=== PATIENT | male | born 1960 | race Caucasian/White ===

== ENCOUNTER → 2020-03-11 12:43 | Outpatient (CLI) | payer BC, SELFPAY ==
--- NOTE | ~2020-03-11 | CT_ITS ---
EXAMINATION: CT abdomen pelvis w con DATE: 03/11/2020 13:21 INDICATION: Abdominal pain. Hernia. TECHNIQUE: Computed tomography (CT) of the abdomen and pelvis was performed with 100 mL Omnipaque-350 intravenous contrast. Automated exposure control and iterative reconstruction technique were employe d. The dose-length product was 1046.24 mGy-cm. COMPARISON: None FINDINGS: Eventration along the left hemidiaphragm. Postoperative change of prior left thoracotomy with resecti on of portions of the left seventh and eighth ribs and multiple surgical clips at the periphery of th e lower left lung. There are multiple surgical clips at the margin of a [place] saccular aneurysm a rising from the left side of the distal descending thoracic aorta. The aorta which measures approxima tely 2.6 similar in diameter on either side of the aneurysm increases to 4.2 cm medial collateral and 3.3 cm anteroposteriorly at the level of the aneurysm increased attenuation at the margin of the sac cular aneurysm could represent either mural calcification or surgical clips and material for prior re pair. Correlate with surgical history. Mild scarring at the left lung base. Heart size is normal. No pericardial or pleural effusion. Several small calcifications in the liver and spleen consistent with old granulomatous disease. Diffu se hepatic steatosis. Gallbladder is not visualized and is likely surgically absent. Pancreas, bilate ral adrenal glands and kidneys are normal. 2.7 x 2.3 cm fluid-filled duodenal diverticulum posterior to the second portion of the duodenum. To more distal small bowel and the appendix are normal. There is moderate colonic diverticulosis with a sigmoid predominance. There is no adjacent inflammatory ch liv to suggest diverticulitis. Bladder is normal. No free intraperitoneal gas or fluid. No pathologi juan miguel enlarged abdominal or pelvic lymphadenopathy. Suggestion of prior umbilical hernia mesh repair. There is a tiny fat-containing supraumbilical ventral hernia. L5 spondylolysis with bilateral pars i ntra-articular is defects and 7 mm anterolisthesis L5 on S1 with severe disc height loss. Moderate lo wer thoracic spondylosis. IMPRESSION: 1. Tiny fat-containing supraumbilical ventral hernia. 2. 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 Correlate with surgical history. 3. Diffuse hepatic steatosis. 4. L5 spondylolysis with bilateral pars defects and 7 mm anterolisthesis on S1. Reviewed, dictated and finalized at location B. IMPRESSION: 1. Tiny fat-containing supraumbilical ventral hernia. 2. Small saccular aneurysm along the left side of the distal descending thoraci c aorta with change of prior inferior left thoracotomy and surrounding postoper ative changes suggesting possible prior aneurysm repair. Correlate with surgica l history. 3. Diffuse hepatic steatosis. 4. L5 spondylolysis with bilateral pars defects and 7 mm anterolisthesis on S1.
[2020-03-11 13:11] LABS: Estimated Glomerular Filt Rate > 60
== END ==
PROVIDERS: PCP Internal Medicine; Visit Provider Internal Medicine
DX: K43.9 Ventral hernia without obstruction or gangrene (principal); K76.0 Fatty (change of) liver, not elsewhere classified; M47.896 Other spondylosis, lumbar region
CPT/HCPCS: 74177; Q9967

== ENCOUNTER → 2021-09-11 11:58 | Outpatient (CLI) | payer BC, SELFPAY ==
--- NOTE | ~2021-09-11 | XR_ITS ---
EXAMINATION: XR chest 2V EXAM DATE: 09/11/2021 12:16 INDICATION: Dyspnea. TECHNIQUE: Frontal and lateral projections of the chest obtained and reviewed. There is no prior harinder dy for comparison. FINDINGS: There is left pleural blunting, patient may have had partial left pneumonectomy, correlate with surgical history. Mild cardiomegaly. No confluent consolidation or pneumothorax. There are mild bony degenerative changes. IMPRESSION: 1. Cardiomegaly. 2. Left lung volume loss and blunted costophrenic recess probably partial pneumonectomy. Reviewed, dictated and finalized at location B. TICE REPRESENTATIVE IMPRESSION: 1. Cardiomegaly. 2. Left lung volume loss and blunted costophrenic recess probably partial pneu monectomy.
== END ==
PROVIDERS: PCP Internal Medicine; Visit Provider Internal Medicine
DX: R06.00 Dyspnea, unspecified (principal); I51.7 Cardiomegaly
CPT/HCPCS: 71046

== ENCOUNTER 2021-10-02 11:10 | Outpatient (CLI) | payer BC, SELFPAY ==
--- NOTE | 2021-10-02 13:49 | WPDPFTINT ---
PFT Procedure Performed PFT Procedure Performed Plethysmography (Lung Vol) Diffusing Cap (DLCO) Flow Vol Loop Spirometry w/o Bronchodil PFT Interpretation This is a pulmonary function test with spirometry, plethysmography and diffusing capacity. The test was performed and results interpreted in accordance with the 2019 and 2005 ATS/ERS Task Force guidelines respectively using the Global Lung Function Initiative-2012 reference equations. Patient demonstrated good effort and cooperation. Reproducibility criteria were met. The quality of the spirometry maneuver was Grade A. Findings: Spirometry: There is decreased maximal expiratory airflow at low lung volumes with concave expiratory flow tracing. The contour the inspiratory flow tracing is normal. The FVC is 2.08 L, 51% predicted. The FEV1 is 1.27 L, 40% predicted. The FEV1: FVC ratio 61%. Plethysmography: The total lung capacity is 4.42 L, 71% predicted. The functional residual capacity is 2.18 L, 69% predicted. The residual volume is 2.15 L, 106% predicted. Diffusing capacity: The diffusing capacity unadjusted for hemoglobin and carboxyhemoglobin is 24.4, 91% predicted. The diffusing capacity adjusted for alveolar volume is 6.20, 139% predicted. Impression: There is a combined obstructive and restrictive ventilatory abnormality. There are no guidelines to assign the severity of obstruction and restriction with a combined abnormality. In my opinion, given the moderately concave expiratory flow tracing and moderately decreased FEV1:FVC ratio and mild restrictive abnormality I would state there is a moderate obstructive abnormality and a mild restrictive abnormality resulting in a severely decreased FEV1. The diffusing capacity unadjusted for hemoglobin and carboxyhemoglobin is normal and is increased when adjusted for alveolar volume. There are no prior studies for comparison
== END 2021-10-02 11:11 | disposition home or self-care (01) ==
LOC: ANHPFT 11:13
PROVIDERS: PCP Internal Medicine; Visit Provider Internal Medicine
DX: R06.00 Dyspnea, unspecified (principal); R94.2 Abnormal results of pulmonary function studies
CPT/HCPCS: 94375; 94726; 94729

== ENCOUNTER 2022-08-19 09:49 | Outpatient (CLI) | payer BC, SELFPAY ==
--- NOTE | ~2022-08-19 | NM_ITS ---
EXAMINATION: NM jose stress w perfusion DATE: 08/19/2022 11:51 INDICATION: Shortness of breath. TECHNIQUE: Rest images were obtained following intravenous administration of 11 mCi Tc99m tetrofosmin (Myoview). The patient was infused intravenously with Lexiscan (regadenoson). Then, 33 mCi Tc99m tet rofosmin (Myoview) was administered intravenously, and stress images were obtained. Data was reconstr ucted into short axis and horizontal and vertical long axis SPECT images. Gated SPECT images were als o obtained. COMPARISON: CT abdomen and pelvis 03/11/2020 FINDINGS: There is a small, mild, fixed perfusion defect involving apical lateral segment of left nito tricle correlating with subendocardial fat on the prior CT, consistent with old infarct. There is no segmental wall motion abnormality. Left ventricular ejection fraction measures 61%. IMPRESSION: 1. 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 2. Normal left ventricular ejection fraction measuring 61%. Reviewed, dictated and finalized at location A. CARRIER
--- NOTE | 2022-08-19 10:27 | EST_ITS ---
Patient Info Name: Natan Hernandes Age: 62 years : 1960 Gender: Male Ht: 67 in Wt: 260 lbs BSA: 2.42 m2 HR: 83 bpm BP: 138 / 77 mmHg Heart Rhythm: Sinus Rhythm Exam Date: 08/19/2022 10:52 AM Exam Location: [facility] Stress Patient Status: Outpatient Admit Date: 08/19/2022 Staff Ordering Physician: Justo Acosta PA-C Attending Provider: Justo Acosta PA-C Exercise Physician: Ashok French DO Exam Type: CA stress jose w NM Study Info Indications R06.02 - Shortness of breath A regadenoson stress test was performed. Summary 1. 1. Negative lexiscan stress test for ischemic ST changes by ECG criteria. 2. 2. Stable hemodynamics throughout the test. 3. 3. Nuclear scan to follow and will be reported separately. Please correlate with it. 4. 4. Patient informed of the above results. Protocol: Lexiscan Stress ECG Details Stage: REST Duration (min): 0 min : 58 sec HR (bpm): 77 SBP (mmHg): 138 DBP (mmHg): 77 Stage: REST Duration (min): 12 min : 30 sec HR (bpm): 83 SBP (mmHg): 138 DBP (mmHg): 77 Stage: STAGE 1 Duration (min): 0 min : 59 sec HR (bpm): 109 SBP (mmHg): 154 DBP (mmHg): 70 Stage: RECOVERY Duration (min): 1 min : 0 sec HR (bpm): 94 SBP (mmHg): 154 DBP (mmHg): 70 Stage: RECOVERY Duration (min): 2 min : 0 sec HR (bpm): 89 SBP (mmHg): 154 DBP (mmHg): 70 Stage: RECOVERY Duration (min): 3 min : 0 sec HR (bpm): 90 SBP (mmHg): 160 DBP (mmHg): 80 Stage: RECOVERY Duration (min): 3 min : 1 sec HR (bpm): 92 SBP (mmHg): 160 DBP (mmHg): 80 Rest HR: 83 bpm Peak HR: 111 bpm Rest Sys BP: 138 mmHg Peak Sys BP: 160 mmHg Max Pred HR: 159 bpm % Max Pred HR: 70 % Target HR: 135 bpm Max RPP: 17,760 bpm*mmHg Termination Reason: Completed protocol Cardiac Symptoms: Shortness of breath Total Time: 1 min : 0 sec Rest Schilling BP: 77 mmHg Peak Schilling BP: 80 mmHg Total Dose: 0.4 mg Resting ECG Sinus rhythm, IRBBB. Stress ECG No ST changes. Arrhythmias None. Report Signatures
== END 2022-08-19 09:50 | disposition home or self-care (01) ==
PROVIDERS: PCP Physician Assistant; Visit Provider Physician Assistant
DX: R06.02 Shortness of breath (principal); I25.2 Old myocardial infarction
CPT/HCPCS: 78452; 93017; A9502; J2785

== ENCOUNTER 2022-11-25 10:33 | Outpatient (CLI) | payer BC, SELFPAY ==
--- NOTE | 2022-12-01 07:31 | WPDHOLTEREM ---
Holter/Event Monitor Holter/Event Monitor Date of procedure: 11/25/22 Holter/Event Procedure: 48 Hr Holter Monitor Indications: Palpitations Conclusion: 1. 48 hour holter monitor on 11/25/22. 2. Predominant rhythm is sinus rhythm. HR range 54-138 bpm; average HR 85 bpm. 3. There are 6,906 premature supraventricular complexes, 99 supraventricular couplets, 11,390 supraventricular bigeminy and 560 supraventricular trigeminy. There are 12 episodes of atrial tachycardia, fastest at 190 bpm and longest lasting 7 beats. 4. There are 434 premature ventricular complexes and 24 ventricular bigeminy. No ventricular tachycardia. 5. No sinoatrial or atrioventricular blocks. No significant pauses greater than 2 seconds. 6. No symptoms available for correlation.
== END 2022-11-25 10:34 | disposition home or self-care (01) ==
PROVIDERS: PCP Physician Assistant; Visit Provider Physician Assistant
DX: R00.2 Palpitations (principal)
CPT/HCPCS: 93225; 93226

== ENCOUNTER 2023-07-07 09:35 | Outpatient (CLI) | payer BC, SELFPAY ==
--- NOTE | ~2023-07-07 | XR_ITS ---
XR chest 2V 07/07/2023 09:48 Indication: Cough for 4 weeks Procedure: 2 view chest Comparison: 09/11/2021 Findings: Multiple healed left rib fractures with adjacent pleural thickening. There is blunting of t he left lateral costophrenic recess. Cardiomegaly. No acute focal pneumonia, edema or pneumothorax. Impression: 1: No acute cardiopulmonary disease. Reviewed, dictated and finalized at location B. ISH FACULTY MEMBER Impression: 1: No acute cardiopulmonary disease.
== END 2023-07-07 09:36 | disposition home or self-care (01) ==
PROVIDERS: PCP Physician Assistant; Visit Provider Physician Assistant
DX: R05.9 Cough, unspecified (principal)
CPT/HCPCS: 71046

== ENCOUNTER 2024-07-21 00:28 | Day surgery (SDC) | payer BC, SELFPAY ==
[2024-06-29 13:41] VITALS: BMI 41.4
[2024-07-21 07:48] VITALS: BP 156/87; PULSE 102; RESP 24; TEMP 36.2; O2SAT 95
[2024-07-21] MEDS: LACTATED RINGERS 1,000 ML 150 ML IV CONT (08:03)
--- NOTE | 2024-07-21 08:15 | WPDANESEPPF ---
Anes - Initial Pre Proc Eval Procedure: Operation Date: 07/21/24 09:00 Proposed Procedures p Screening Colonoscopy - Joni Lemon MD Date/Time: 07/21/24 08:15 Surgeon: Joni Lemon MD Pre Op Diagnosis: screening colon Patient Data Age: 64 Gender: M Height: 1.7 m Weight: 119.1 kg Last Vital Signs Temp 97.2 F L 07/21/24 07:48 Pulse 102 H 07/21/24 07:48 Resp 24 H 07/21/24 07:48 BP 156/87 H 07/21/24 07:48 Pulse Ox 95 07/21/24 07:48 O2 Del Method Room Air 07/21/24 07:48 Allergies Allergy/AdvReac Type Severity Reaction Status Date / Time No Known Allergies Allergy Verified 07/21/24 07:44 Home Medications ?Medication ?Instructions ?Recorded ?Confirmed ?Type aspirin 81 mg tablet,delayed 81 mg PO DAILY 07/31/22 07/21/24 History release (Adult Low Dose Aspirin) multivitamin (Daily Multi-Vitamin 1 tablet PO DAILY 07/31/22 07/21/24 History tablet) fluticasone 100 mcg-salmeterol 50 1 inh inhalation Q12H #60 ea 07/13/23 06/29/24 Rx mcg/dose blistr powdr for inhalation (Advair Diskus) rosuvastatin 5 mg tablet 5 mg PO DAILY #90 tabs 10/04/23 07/21/24 Rx lisinopril 20 2 tablet PO DAILY #180 tabs 01/28/24 07/21/24 Rx mg-hydrochlorothiazide 12.5 mg tablet omeprazole 20 mg capsule,delayed See Rx Instructions .Route 03/22/24 07/21/24 Rx release .COMPLEX #90 caps diltiazem HCl 120 mg 120 mg PO DAILY #90 caps 04/11/24 07/21/24 Rx capsule,extended release 24 hr Patient hx anesthesia problems: none Family hx anesthesia problems: none Results Review: All pre-operative results and documents have been reviewed as part of the pre-operative evaluation. [facility] Social History Social History Years smoked: 20 Smoking status: Former smoker Tobacco type: cigars Second hand tobacco smoke exposure: No Alcohol intake: current Drinks per week: 7 Substance use: unknown Substance use type: does not use Last use: 2019 Lack of Transportation: YES Lack of Food: Never True Current Housing: I Have Housing Concerned About Future Housing: No Difficulty Paying Gas/Electric Bills: No Difficulty Paying for Meds: No Currently Unemployed: No Education: High School Diploma/GED Difficulty w/ Childcare or Family Care: No Living arrangements: with family Spiritual care concerns: No Anes - Eval Final PreProcedure Day of Procedure 07/21/24 08:15 Patient weight: morbidly obese Heart: regular rate and rhythm Lungs: clear to auscultation Airway: Mallampati scale class III Neurological: alert and oriented Last oral intake: >/= 8 hours ASA classification: III Emergent: no Anesthetic plan: proceed Anesthesia type and monitoring: general GIVS and standard monitoring Results Review: All pre-operative results and documents have been reviewed as part of the pre-operative evaluation. Informed Consent: The patient's anesthetic plan and its attendant risks and benefits were discussed with the patient/family/POA. Questions were solicited and answers provided to the satisfaction of the patient/family/POA.
--- NOTE | 2024-07-21 09:00 | PM.IMHP ---
H&P: HPI History of Present Illness Date/Time: 07/21/24 09:00 Chief Complaint: Screening colonoscopy Narrative: This is the patient's 2nd colonoscopy after 10 years.. There are no GI symptoms and there is no family history of colorectal cancer. Review of Systems Review of Systems: All systems reviewed & are unremarkable except as noted in HPI and below PMFSH Social History Social History Years smoked: 20 Smoking status: Former smoker Tobacco type: cigars Second hand tobacco smoke exposure: No Alcohol intake: current Drinks per week: 7 Substance use: unknown Substance use type: does not use Last use: 2019 Lack of Transportation: YES Lack of Food: Never True Current Housing: I Have Housing Concerned About Future Housing: No Difficulty Paying Gas/Electric Bills: No Difficulty Paying for Meds: No Currently Unemployed: No Education: High School Diploma/GED Difficulty w/ Childcare or Family Care: No Living arrangements: with family Spiritual care concerns: No Meds Home Medications and Allergies Home Medications ?Medication ?Instructions ?Recorded ?Confirmed ?Type aspirin 81 mg tablet,delayed 81 mg PO DAILY 07/31/22 07/21/24 History release (Adult Low Dose Aspirin) multivitamin (Daily Multi-Vitamin 1 tablet PO DAILY 07/31/22 07/21/24 History tablet) fluticasone 100 mcg-salmeterol 50 1 inh inhalation Q12H #60 ea 07/13/23 06/29/24 Rx mcg/dose blistr powdr for inhalation (Advair Diskus) rosuvastatin 5 mg tablet 5 mg PO DAILY #90 tabs 10/04/23 07/21/24 Rx lisinopril 20 2 tablet PO DAILY #180 tabs 01/28/24 07/21/24 Rx mg-hydrochlorothiazide 12.5 mg tablet omeprazole 20 mg capsule,delayed See Rx Instructions .Route 03/22/24 07/21/24 Rx release .COMPLEX #90 caps diltiazem HCl 120 mg 120 mg PO DAILY #90 caps 04/11/24 07/21/24 Rx capsule,extended release 24 hr Allergies Allergy/AdvReac Type Severity Reaction Status Date / Time No Known Allergies Allergy Verified 07/21/24 07:44 Vital Signs Vital Signs - 24 hr 07/21/24 07:48 Temperature 97.2 F L Pulse Rate 102 H Respiratory Rate 24 H Blood Pressure 156/87 H Pulse Oximetry 95 Oxygen Delivery Room Air Exam Const: General: cooperative and healthy appearing Resp: Effort & Inspection: normal respiratory effort and able to speak in complete sentences Auscultation: clear to auscultation bilaterally Cardio: Rate: regular rate Rhythm: regular rhythm GI: Inspection: normal to inspection GI Palp: No No hepatosplenomegaly present Auscultation: normal bowel sounds Rectal Exam: deferred Skin: General skin exam: normal color Psych: Appearance: grossly normal Mental Status: mental status grossly normal Assessment and Plan Assessment and plan (1) Encounter for screening colonoscopy: Code(s): Z12.11 - Encounter for screening for malignant neoplasm of colon Status: Acute Assessment and Plan: The patient is deemed a good candidate for the procedure. Consent signed. Will proceed.
[2024-07-21] MEDS: SIMETHICONE ORAL SUSPENSION 20 MG/0.3 ML 30 ML BOTTLE 0.6 ML IRRIGATION (09:11)
[2024-07-21 09:26] VITALS: BP 128/80; PULSE 97; RESP 19; O2SAT 97
[2024-07-21 09:36] VITALS: BP 126/79; PULSE 96; RESP 19; O2SAT 95
[2024-07-21 09:46] VITALS: BP 133/85; PULSE 96; RESP 18; O2SAT 96
== END 2024-07-21 09:57 | disposition home or self-care (01) ==
PROVIDERS: PCP Internal Medicine; Visit Provider Internal Medicine Gastroenterology
PROC: 0DJD8ZZ Inspection of Lower Intestinal Tract, Via Natural or Artificial Opening Endoscopic (ICD-10-PCS; CPT 45378; principal; 2024-07-21 09:00)
DX: Z12.11 Encounter for screening for malignant neoplasm of colon (principal); K64.8 Other hemorrhoids; K57.30 Diverticulosis of large intestine without perforation or abscess without bleeding; E66.01 Morbid (severe) obesity due to excess calories; Z68.41 Body mass index [BMI] 40.0-44.9, adult; Z79.82 Long term (current) use of aspirin; Z79.51 Long term (current) use of inhaled steroids; Z87.891 Personal history of nicotine dependence
CPT/HCPCS: 45378; J2003; J2704; J7120

== ENCOUNTER 2024-09-26 09:57 | Outpatient (CLI) | payer BC, SELFPAY ==
--- NOTE | ~2024-09-26 | XR_ITS ---
Clinical Indication: Cough PA and lateral views of the chest: Comparison: 07/07/2023 Findings: Stable chronic blunting of left costophrenic angle. Lungs are otherwise clear. [employer]omedia stinal silhouette is within normal limits. Bones and soft tissues are unremarkable. Impression: No acute abnormality. Stable chronic blunting of the left costophrenic angle. Reviewed, dictated and finalized at location . Impression: No acute abnormality. Stable chronic blunting of the left costophrenic angle.
--- OUTSIDE RECORDS SUMMARY | 2024-09-26 11:05 | XMS_ITS | Referral Summary ---
Author Organization [facility] Address [address] [place] [address] Care Team Providers Care Industrial Rehabilitation Consultant Name Role Phone Natan Martel MD Primary Care Provider [phone] Natan Cain MD Unavailable [phone] Jj Palma MD Unavailable Encounters Date Type Department Care Team Description 09/23/2024 9:15 AM CDT Office Visit [facility] [address] [phone] Piper Lawrence NP Lower respiratory infection (e.g., bronchitis, pneumonia, pneumonitis, pulmonitis) (Primary Dx) from Last 3 Months Allergies No known active allergies Medications cloNIDine (CATAPRES) 0.2 mg tablet Take 0.2 mg by mouth 2 (two) times a day Active omeprazole (PriLOSEC) 10 mg capsuleIndications: Symptomatic Gastroesophageal Reflux Disease Take 1 capsule (10 mg total) by mouth daily Active mvi, adult no.2 without vit K 3,300 unit-200 unit/10 mL solutionIndications :Pre-Surgery or Post-Surgery Health Examination Infuse into a venous catheter Active lisinopril-hydroCHL OROthiazide (ZESTORETIC) 20-12.5 mg per tablet Take 2 tablets by mouth daily Active dilTIAZem CD 120 mg 24 hr capsule 024 Active rosuvastatin (CRESTOR) 10 mg tablet Take 1 tablet (10 mg total) by mouth Active benzonatate (TESSALON) 200 mg capsuleIndications: Lower respiratory infection (e.g., bronchitis, pneumonia, pneumonitis, pulmonitis) Take 1 capsule (200 mg total) by mouth 3 (three) times a day as needed for cough 30 capsule Active azithromycin (ZITHROMAX) 250 mg tabletIndications:L ower respiratory infection (e.g., bronchitis, pneumonia, pneumonitis, pulmonitis) Take 2 tablets the first day, then 1 tablet daily for 4 days. 6 tablet Active amoxicillin-clavula poppy (AUGMENTIN) 875-125 mg per tabletIndications:L ower respiratory infection (e.g., bronchitis, pneumonia, pneumonitis, pulmonitis) Take 1 tablet by mouth 2 (two) times a day for 5 days 10 tablet 025 2024 Active albuterol HFA (PROVENTIL HFA,VENTOLIN HFA,PROAIR HFA) 90 mcg/actuation inhalerIndications: Lower respiratory infection (e.g., bronchitis, pneumonia, pneumonitis, pulmonitis) Inhale 2 puffs every 6 (six) hours as needed for wheezing or shortness of breath 1 each 025 Active methylPREDNISolone (Medrol, Savage,) 4 mg DosepackIndications :Lower respiratory infection (e.g., bronchitis, pneumonia, pneumonitis, pulmonitis) follow package directions 1 packet Active benzonatate (TESSALON) 200 mg capsuleIndications: COVID Take 1 capsule (200 mg total) by mouth 3 (three) times a day as needed for cough keep tessalon out of reach of children, especially children under the age of 10, due to possible serious risk such as if ingested by children under the age of 10. 30 capsule 024 2024 Discontinued albuterol HFA (PROVENTIL HFA,VENTOLIN HFA,PROAIR HFA) 90 mcg/actuation inhalerIndications: Wheezing Inhale 2 puffs every 6 (six) hours as needed for wheezing or shortness of breath 1 each 024 2024 Discontinued Active Problems Problem Noted Date Diagnosed Date Left fingertip tingling 11/12/2021 Apraxia 11/12/2021 Non-traumatic rhabdomyolysis 11/12/2021 Hepatitis 11/12/2021 Primary hypertension 11/12/2021 GEORGE (obstructive sleep apnea) 11/12/2021 Social History Tobacco Use Types Packs/Day Years Used Date Smoking Tobacco: Former Cigarettes 2 - 2015 Smokeless Tobacco: Former Comments:1 cigar a day but d idn't inhale Alcohol Use Standard Drinks/Week Comments Yes 0 (1 standard drink = 0.6 oz pur e alcohol) Social Connection and Isolation Panel [NHANES] A nswer Date Recorded In a typical week, how many times do you talk on the phone with family, friends, or neighbors? Three times a week 11/14/19 How often do you get togethe r with friends or relatives? Once a week 11/13/2021 How often do you attend chur ch or mu-ism services? 1 to 4 times per year 11/13/2021 Active Member of Clubs or Organizations Not on f ile 11/13/2021 Attends Club or Organization Meetings Not on jorge e 11/13/2021 Are you , , di vorced, , never , or living with a partner? 11/13/2021 Overall Financial Resource Strain (CARDIA) Answe r Date Recorded How hard is it for you to pa y for the very basics like food, housing, medical care, and heating? Not very hard 11/13/2021 PHQ-2 Answer Date Recorded PHQ-2 Total Score (If total score is 3 or more points, staff should administer the PHQ-9) 0 11/13/2021 Hunger Vital Sign Answer Date Recorded Within the past 12 months, y ou worried that your food would run out before you got the money to buy more. Never true 11/14/19 Within the past 12 months, t he food you bought just didn't last and you didn't have money to get more. Never true 11/13/2021 PRAPARE - Transportation Answer Date Re corded In the past 12 months, has l ack of transportation kept you from medical appointments or from getting medications? No 11/2021 In the past 12 months, has l ack of transportation kept you from meetings, work, or from getting things needed for daily living? No 11/13/2021 Housing Stability Vital Sign Answer Jerman e Recorded In the last 12 months, was t here a time when you were not able to pay the mortgage or rent on time? No 11/13/2021 Number of Places Lived in the Last Year Not on f ile 11/13/2021 In the last 12 months, was t here a time when you did not have a steady place to sleep or slept in a intermediate (including now)? 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 Gender Identity Not on file Sexual Orientation Not on file Last Filed Vital Signs Vital Sign Reading Time Taken Comments Blood Pressure 149/86 09/23/2024 8:28 AM CDT Pulse 105 09/23/2024 8:28 AM CDT Temperature 37.2 C (98.9 F) 09/23/2024 8:28 AM CDT Respiratory Rate 22 09/23/2024 8:28 AM CDT Oxygen Saturation 93% 09/23/2024 8:28 AM CDT Inhaled Oxygen Concentration - - Weight 118.8 kg (262 lb) 09/23/2024 8:28 AM CDT Height 170.2 cm (5' 7 ) 03/13/2024 8:20 AM CDT Body Mass Index 41.04 03/13/2024 8:20 AM CDT Plan of Treatment Not on file Procedures Procedure Name Priority Date/Time Associated Diagnosis Comments POC INFLUENZA A/B, COVID-19 ANTIGEN Routine 09/23/2024 8:34 AM CDT Lower respiratory infection (e.g., bronchitis, pneumonia, pneumonitis, pulmonitis) HEPATITIS C ANTIBODY Routine 11/13/2021 4:55 AM CDT from Last 3 Months or Most Recently Relevant to Health Maintenance Results * POC Influenza A/B, COVID-19 antigen (09/23/2024 8:34 AM CDT) Influenza A Ag, POC Negative Negative [facility] Influenza B Ag, POC Negative Negative [facility] COVID-19 Ag POC Presumptive Negative Presumptive Negative, Invalid [facility] Nasal 09/23/2024 8:34 AM CDT Piper Lawrence NP POINT OF CARE TEST ORDERABLES Final Result Performing Organization Address [facility] Co de Phone Number [facility] [address] * Hepatitis C antibody (11/13/2021 4:55 AM CDT) Hep C Ab Nonreactive Nonreactive [facility] CHRISTIAN Comment: Interpretive Data Nonreactive: Antibodies to HCV not detected. Does NOT exclude the possibility of recent exposure to HCV. Equivocal: Equivocal for HCV antibodies. Supplemental molecular testing will be automatically performed to determine infection status in accordance with current CDC screening recommendations. Reactive: Positive for HCV antibodies. This may represent current or past HCV infection. Supplemental molecular testing will be automatically performed to determine current infection status in accordance with current CDC screening recommendations. Interpretive data was last revised on 2019. Blood 11/13/2021 4:55 AM CDT 11/13/2021 5:09 AM CDT Jimi Espino MD LAB MICROBIOLOGY - GEN ERAL ORDERABLES Final Result Performing Organization Address [facility] Co de Phone Number [facility] [phone] [address] [place] [address] from Last 3 Months or Most Recently Relevant to Health Maintenance Insurance [employer] Member Subscriber Plan / Payer (Ef fective 2021-Present) Name:Natan Hernandes Relation to Subscriber:Self Name:Natan Hernandes Payer ID:[id number] (NAIC) Group ID:Not on file Type:ARA ZIMMERMAN Address: [facility] [id number] [id number] Advance Directives For more information, please contact: [phone] * Full Code (Latest Code Status on File) Date Activated Date Inactivated Comments 11/12/2021 11:14 PM 11/13/2021 9:31 PM Care Teams Industrial Rehabilitation Consultant Relationship Specialty Start Date End Date Natan Martel MD PCP - General 11/12/21 Natan Cain MD [address] [place] [address] [place] [address] Consulting Physician Neurology 11/13/21 Jj Palma MD [address] [place] [address] [place] [address] Consulting Physician Gastroenterology 11/13/21
--- OUTSIDE RECORDS SUMMARY | 2024-09-26 11:05 | XMS_ITS | Data Portability ---
Author Organization [place] [facility] [employer], Main Office Address [address] [place] [address] Care Team Providers Care Jar Filler Name Role Phone JAMES MARTEL Primary Care Provider [phone] JAMES MARTEL Referring Provider [phone] Assessment Encounter Date Assessment Date Assessment LastModified by Organization Details LastModified Time 10/27/2022 10/27/2022 Assessment: Mild OSAHS, AHI = 5 Iron deficiency anemia PLMD Plan: The following were reviewed and explained to the patient: [facility] home sleep study 10/09/21 AHI = 5 [facility] titration sleep study 12/09/21 [employer] Vitera full face mask @ 14 cmH2O, PLMI = 26 Ferritin 06/24/22 16 ng/mL Ferritin 10/14/22 174 ng/mL Hgb 06/24/22 12.4 gm% Non-pharmacologic therapy options for periodic limb movement disorder include avoidance of aggravating drugs and substances, mental alerting activities, short daily hemodialysis for patients in renal failure, exercise, leg massage, stretching calf muscles, use of a weighted blanket and applied heat. Patient will cut down on alcohol consumption and caffeine intake. BUN, Creatinine, Vitamin E, Vitamin B12, RBC folate, Iron, TIBC, ESR, Magnesium and Hct levels are within normal limits. Patient will continue FeSO4 325 mg + Vit C 500 mg but decrease from daily to weekly to keep the ferritin > 75 ng/ml. Check ferritin and Hgb one week before return. We will hold off on dopaminergic therapy for now. PAP compliance downloaded and interpreted x 20 minutes. Data reviewed and explained to the patient. Average apnea/hypopnea index (AHI) is 2.2. Patient used PAP > 4 hours 88% of the time. PAP is set at 14 cmH2O. PAP will remain at 14 cmH2O. Oxygen supplementation: none Patient is benefiting from PAP therapy. Encouraged patient to maintain PAP use more than 70% of the time. Statement of PAP use and benefits will be sent to the home care store. Educated the patient on problems and solutions associated with positive airway pressure (PAP) use. Difficulty tolerating pressure, mask leaks, intolerance of interface, nasal congestion, claustrophobic response, dry mouth, and unintentional mask removal during sleep were covered. Patient's mask leaks air. We will ensure the mask is situated properly. Patient can wear protective eye covering during sleep, and the mask can be resized. Patient will dial down on heated humidification to reduce condensation. Patient will use hose cover or tubing wrap if problem persists. Prescription for tubing wrap or hose cover given. Provided the patient with a list of local home care stores where positive airway pressure (PAP) units, accouterments, and services are available. Home care store selection is based on patient's insurance carrier. Patient will setup an appointment with [facility] for supplies and pressure adjustments. A major predictor of success with use of PAP is follow-up with both the respiratory supplier and the treating physician. The respiratory supplier optimally will follow-up within two weeks after starting use while the treating physician optimally will follow-up within 90 days after starting therapy to assess adherence and effectiveness of treatment. The download results can show the treating physician information about adherence to treatment, residual AHI while on treatment and presence of large mask leakage. This information is especially helpful if the patient has residual sleepiness despite treatment. General information on sleep disordered breathing, evaluation of sleep disordered breathing, treatment with PAP therapy, and living with PAP therapy were covered. We discussed with the patient the impact of weight on: Sleep disordered breathing Hypertension Hyperlipidemia ROBEL We discussed with the patient the benefit of PAP therapy on: Sleep disordered breathing Hypertension ROBEL Educated the patient on sleep hygiene measures. Relaxing rituals to rest easy, understanding foods with positive and negative impact on sleep, creating a peaceful sleep environment, timing of exercise, using herbal sleep aids, and practicing sleep-friendly meditation were covered. To determine how much sleep is needed, the patient will assess where he falls on the spectrum, examine what lifestyle factors such as work schedules and stress are affecting the quality and quantity of sleep. In general, adults need 7-9 hours of sleep. Educated the patient regarding foods that promote sleep. These include but are not limited to cherries, bananas, toast, oatmeal, and warm milk. Educated the patient regarding foods and drinks to avoid before bedtime. These include but are not limited to aged cheese, chocolate, spicy foods, tomato-based sauces, soy, ginseng tea and processed meat. Advocated influenza vaccination annually and pneumonia vaccination in 2025. Advocated weight loss through diet and exercise. Patient's ideal body weight according to height and gender is up to 155 lbs. Encouraged patient to adjust caloric intake to maintain/achieve ideal body weight, emphasizing on fruits, vegetables, whole grains, and fat-free or low-fat products. These include lean meats, poultry, fish, beans, eggs, and nuts and foods that are low in saturated fats, trans-fats, cholesterol, salt (sodium), and glycemic index. Stressed the importance of regular exercise up to the patient's capacity limits. In this case, we recommend 20 min daily walking, 2 days a week of resistance training. Patient to monitor BP daily and bring records to PCP for further management. Follow-up: 6 months, April 2023 [facility] Not available 10/27/2022 13:09:51 04/28/2023 04/28/2023 Assessment: Hypertension Mild OSAHS, AHI = 5 Iron deficiency anemia PLMD Plan: The following were reviewed and explained to the patient: [facility] home sleep study 10/09/21 AHI = 5 [facility] titration sleep study 12/09/21 [employer] large Vitera full face mask @ 14 cmH2O, PLMI = 26 Ferritin 06/24/22 16 ng/mL Ferritin 10/14/22 174 ng/mL Ferritin 04/28/23 35 ng/mL Hgb 06/24/22 12.4 gm% Hgb 04/28/23 15.1 mg% Non-pharmacologic therapy options for periodic limb movement disorder include avoidance of aggravating drugs and substances, mental alerting activities, short daily hemodialysis for patients in renal failure, exercise, leg massage, stretching calf muscles, use of a weighted blanket and applied heat. Patient will cut down on alcohol consumption and caffeine intake. BUN, Creatinine, Vitamin E, Vitamin B12, RBC folate, Iron, TIBC, ESR, Magnesium and Hct levels are within normal limits. Patient will continue FeSO4 325 mg + Vit C 500 mg but increase from weekly to daily to keep the ferritin > 75 ng/ml. Check ferritin and Hgb one week before return. We will hold off on dopaminergic therapy for now. PAP compliance downloaded and interpreted x 20 minutes. Data reviewed and explained to the patient. Average apnea/hypopnea index (AHI) is 1.6. Patient used PAP > 4 hours 92% of the time. PAP is set at 14 cmH2O. PAP will remain at 14 cmH2O. Oxygen supplementation: none Patient is benefiting from PAP therapy. Encouraged patient to maintain PAP use more than 70% of the time. Statement of PAP use and benefits will be sent to the home care store. Educated the patient on problems and solutions associated with positive airway pressure (PAP) use. Difficulty tolerating pressure, mask leaks, intolerance of interface, nasal congestion, claustrophobic response, dry mouth, and unintentional mask removal during sleep were covered. Patient's mask leaks air. We will ensure the mask is situated properly. Patient can wear protective eye covering during sleep, and the mask can be resized. Patient will dial down on heated humidification to reduce condensation. Patient will use hose cover or tubing wrap if problem persists. Prescription for tubing wrap or hose cover given. Provided the patient with a list of local home care stores where positive airway pressure (PAP) units, accoutrement, and services are available. Home care store selection is based on patient's insurance carrier. Patient will setup an appointment with [facility] for supplies and pressure adjustments. A major predictor of success with use of PAP is follow-up with both the respiratory supplier and the treating physician. The respiratory supplier optimally will follow-up within two weeks after starting use while the treating physician optimally will follow-up within 90 days after starting therapy to assess adherence and effectiveness of treatment. The download results can show the treating physician information about adherence to treatment, residual AHI while on treatment and presence of large mask leakage. This information is especially helpful if the patient has residual sleepiness despite treatment. General information on sleep disordered breathing, evaluation of sleep disordered breathing, treatment with PAP therapy, and living with PAP therapy were covered. We discussed with the patient the impact of weight on: Sleep disordered breathing Hypertension Hyperlipidemia ROBEL We discussed with the patient the benefit of PAP therapy on: Sleep disordered breathing Hypertension ROBEL Educated the patient on sleep hygiene measures. Relaxing rituals to rest easy, understanding foods with positive and negative impact on sleep, creating a peaceful sleep environment, timing of exercise, using herbal sleep aids, and practicing sleep-friendly meditation were covered. To determine how much sleep is needed, the patient will assess where he falls on the spectrum, examine what lifestyle factors such as work schedules and stress are affecting the quality and quantity of sleep. In general, adults need 7-9 hours of sleep. Educated the patient regarding foods that promote sleep. These include but are not limited to cherries, bananas, toast, oatmeal, and warm milk. Educated the patient regarding foods and drinks to avoid before bedtime. These include but are not limited to aged cheese, chocolate, spicy foods, tomato-based sauces, soy, ginseng tea and processed meat. Advocated influenza vaccination annually and pneumonia vaccination in 2025. Advocated weight loss through diet and exercise. Patient's ideal body weight according to height and gender is up to 155 lbs. Encouraged patient to adjust caloric intake to maintain/achieve ideal body weight, emphasizing on fruits, vegetables, whole grains, and fat-free or low-fat products. These include lean meats, poultry, fish, beans, eggs, and nuts and foods that are low in saturated fats, trans-fats, cholesterol, salt (sodium), and glycemic index. Stressed the importance of regular exercise up to the patient's capacity limits. In this case, we recommend 20 min daily walking, 2 days a week of resistance training. Patient to monitor BP daily and bring records to PCP for further management. Follow-up: 6 months, October 2023 Not available 04/28/2023 14:29:53 10/27/2023 10/27/2023 Assessment: Mild OSAHS, AHI = 5 Iron deficiency anemia PLMD Plan: The following were reviewed and explained to the patient: [facility] home sleep study 10/09/21 AHI = 5 [facility] titration sleep study 12/09/21 [employer] large Vitera full face mask @ 14 cmH2O, PLMI = 26 Ferritin 06/24/22 16 ng/mL Ferritin 10/14/22 174 ng/mL Ferritin 04/28/23 35 ng/mL Ferritin 10/07/23 415 ng/mL Hgb 06/24/22 12.4 gm% Hgb 04/28/23 15.1 mg% Hgb 10/07/23 15.7 gm% Non-pharmacologic therapy options for periodic limb movement disorder include avoidance of aggravating drugs and substances, mental alerting activities, short daily hemodialysis for patients in renal failure, exercise, leg massage, stretching calf muscles, use of a weighted blanket and applied heat. Patient will cut down on alcohol consumption and caffeine intake. BUN, Creatinine, Vitamin E, Vitamin B12, RBC folate, Iron, TIBC, ESR, Magnesium and Hct levels are within normal limits. Patient will continue FeSO4 325 mg + Vit C 500 mg but decrease from daily to twice weekly to keep the ferritin > 75 ng/ml. Check ferritin and Hgb one week before return. We will hold off on dopaminergic therapy for now. PAP compliance downloaded and interpreted x 20 minutes. Data reviewed and explained to the patient. Average apnea/hypopnea index (AHI) is 1.1. Patient used PAP > 4 hours 85% of the time. PAP is set at 14 cmH2O. PAP will remain at 14 cmH2O. Oxygen supplementation: none Keep EPR +3. Increase ramp start from 5 to 7 cmH2O. Keep ramp duration at 20 minutes. Keep humidifier level at automatic mode. Keep tube temperature at automatic mode. Patient is benefiting from PAP therapy. Encouraged patient to maintain PAP use more than 70% of the time. Statement of PAP use and benefits will be sent to the home care store. Educated the patient on problems and solutions associated with positive airway pressure (PAP) use. Difficulty tolerating pressure, mask leaks, intolerance of interface, nasal congestion, claustrophobic response, dry mouth, and unintentional mask removal during sleep were covered. Patient's mask leaks air. We will ensure the mask is situated properly. Patient can wear protective eye covering during sleep, and the mask can be resized. Patient will dial down on heated humidification to reduce condensation. Patient will use hose cover or tubing wrap if problem persists. Prescription for tubing wrap or hose cover given. Provided the patient with a list of local home care stores where positive airway pressure (PAP) units, accoutrement, and services are available. Home care store selection is based on patient's insurance carrier. Patient will setup an appointment with [facility] for supplies and pressure adjustments. A major predictor of success with use of PAP is follow-up with both the respiratory supplier and the treating physician. The download results can show the treating physician information about adherence to treatment, residual AHI while on treatment and presence of large mask leakage. This information is especially helpful if the patient has residual sleepiness despite treatment. General information on sleep disordered breathing, evaluation of sleep disordered breathing, treatment with PAP therapy, and living with PAP therapy were covered. We discussed with the patient the impact of weight on: Sleep disordered breathing Hypertension Hyperlipidemia ROBEL We discussed with the patient the benefit of PAP therapy on: Sleep disordered breathing Hypertension ROBEL Educated the patient on sleep hygiene measures. Relaxing rituals to rest easy, understanding foods with positive and negative impact on sleep, creating a peaceful sleep environment, timing of exercise, using herbal sleep aids, and practicing sleep-friendly meditation were covered. To determine how much sleep is needed, the patient will assess where he falls on the spectrum, examine what lifestyle factors such as work schedules and stress are affecting the quality and quantity of sleep. In general, adults need 7-9 hours of sleep. Educated the patient regarding foods that promote sleep. These include but are not limited to cherries, bananas, toast, oatmeal, and warm milk. Educated the patient regarding foods and drinks to avoid before bedtime. These include but are not limited to aged cheese, chocolate, spicy foods, tomato-based sauces, soy, ginseng tea and processed meat. Advocated influenza vaccination annually and pneumonia vaccination in 2025. Advocated weight loss through diet and exercise. Patient's ideal body weight according to height and gender is up to 155 lbs. Encouraged patient to adjust caloric intake to maintain/achieve ideal body weight, emphasizing on fruits, vegetables, whole grains, and fat-free or low-fat products. These include lean meats, poultry, fish, beans, eggs, and nuts and foods that are low in saturated fats, trans-fats, cholesterol, salt (sodium), and glycemic index. Stressed the importance of regular exercise up to the patient's capacity limits. In this case, we recommend 20 min daily walking, 2 days a week of resistance training. Patient to monitor BP daily and bring records to PCP for further management. Follow-up: 6 months, April 2024 Not available 10/27/2023 12:19:18 04/04/2024 04/04/2024 Assessment: Mild OSAHS, AHI = 5 Iron deficiency anemia PLMD Plan: The following were reviewed and explained to the patient: [facility] home sleep study 10/09/21 AHI = 5 [facility] titration sleep study 12/09/21 [employer] Vitera full face mask @ 14 cmH2O, PLMI = 26 Ferritin 06/24/22 16 ng/mL Ferritin 10/14/22 174 ng/mL Ferritin 04/28/23 35 ng/mL Ferritin 10/07/23 415 ng/mL Ferritin 04/04/24 126 ng/mL Hgb 06/24/22 12.4 gm% Hgb 04/28/23 15.1 mg% Hgb 10/07/23 15.7 gm% Hgb 04/04/24 15.1 gm% Non-pharmacologic therapy options for periodic limb movement disorder include avoidance of aggravating drugs and substances, mental alerting activities, short daily hemodialysis for patients in renal failure, exercise, leg massage, stretching calf muscles, use of a weighted blanket and applied heat. Patient will cut down on alcohol consumption and caffeine intake. BUN, Creatinine, Vitamin E, Vitamin B12, RBC folate, Iron, TIBC, ESR, Magnesium and Hct levels are within normal limits. Patient will continue FeSO4 325 mg + Vit C 500 mg twice weekly to keep the ferritin > 75 ng/ml. Check ferritin and Hgb one week before return. We will hold off on dopaminergic therapy for now. PAP compliance downloaded and interpreted x 20 minutes. Data reviewed and explained to the patient. Average apnea/hypopnea index (AHI) is 0.9. Patient used PAP > 4 hours 91% of the time. PAP is set at 14 cmH2O. PAP will remain at 14 cmH2O. Oxygen supplementation: none Keep EPR +3. Keep ramp at 7 cmH2O. Keep ramp duration at 20 minutes. Keep humidifier level at automatic mode. Keep tube temperature at automatic mode. Patient is benefiting from PAP therapy. Encouraged patient to maintain PAP use more than 70% of the time. Statement of PAP use and benefits will be sent to the home care store. Educated the patient on problems and solutions associated with positive airway pressure (PAP) use. Difficulty tolerating pressure, mask leaks, intolerance of interface, nasal congestion, claustrophobic response, dry mouth, and unintentional mask removal during sleep were covered. Patient's mask leaks air. We will ensure the mask is situated properly. Patient can wear protective eye covering during sleep, and the mask can be resized. Patient will dial down on heated humidification to reduce condensation. Patient will use hose cover or tubing wrap if problem persists. Prescription for tubing wrap or hose cover given. Provided the patient with a list of local home care stores where positive airway pressure (PAP) units, accoutrement, and services are available. Home care store selection is based on patient's insurance carrier. Patient will setup an appointment with [facility] for supplies and pressure adjustments. A major predictor of success with use of PAP is follow-up with both the respiratory supplier and the treating physician. The download results can show the treating physician information about adherence to treatment, residual AHI while on treatment and presence of large mask leakage. This information is especially helpful if the patient has residual sleepiness despite treatment. General information on sleep disordered breathing, evaluation of sleep disordered breathing, treatment with PAP therapy, and living with PAP therapy were covered. We discussed with the patient the impact of weight on: Sleep disordered breathing Hypertension Hyperlipidemia ROBEL We discussed with the patient the benefit of PAP therapy on: Sleep disordered breathing Hypertension ROBEL Educated the patient on sleep hygiene measures. Relaxing rituals to rest easy, understanding foods with positive and negative impact on sleep, creating a peaceful sleep environment, timing of exercise, using herbal sleep aids, and practicing sleep-friendly meditation were covered. To determine how much sleep is needed, the patient will assess where he falls on the spectrum, examine what lifestyle factors such as work schedules and stress are affecting the quality and quantity of sleep. In general, adults need 7-9 hours of sleep. Educated the patient regarding foods that promote sleep. These include but are not limited to cherries, bananas, toast, oatmeal, and warm milk. Educated the patient regarding foods and drinks to avoid before bedtime. These include but are not limited to aged cheese, chocolate, spicy foods, tomato-based sauces, soy, ginseng tea and processed meat. Advocated influenza vaccination annually and pneumonia vaccination in 2025. Advocated weight loss through diet and exercise. Patient's ideal body weight according to height and gender is up to 155 lbs. Encouraged patient to adjust caloric intake to maintain/achieve ideal body weight, emphasizing on fruits, vegetables, whole grains, and fat-free or low-fat products. These include lean meats, poultry, fish, beans, eggs, and nuts and foods that are low in saturated fats, trans-fats, cholesterol, salt (sodium), and glycemic index. Stressed the importance of regular exercise up to the patient's capacity limits. In this case, we recommend 20 min daily walking, 2 days a week of resistance training. Patient to monitor BP daily and bring records to PCP for further management. Follow-up: 1 year, March 2025 [facility] Not available 04/04/2024 17:37:42 Plan of Treatment Reminders Order Date Submit Date Provider Last Modified By Organization Details Last Modified Time Details Appointments Any 30 2024 01:00P Hosea Francis MD Not available Not available Not available Lab ferritin, serum or plasma 2023 025 [facility], [address], [address], [place], [address], 04/04/2024 12:14:13 hemoglobi n (Hb), blood 2023 025 [facility] [employer] [facility], [address], [address], [place], [address], 04/04/2024 12:14:13 ferritin, serum or plasma 2023 024 [facility] [employer] [facility], [address], [address], [place], [address], 04/04/2024 10:22:03 hemoglobi n (Hb), blood 2023 024 [facility], [address], [address], [place], [address], 04/04/2024 15:29:22 ferritin, serum or plasma 2022 024 [facility], [address], [address] [place], [place], [address], 10/08/2023 06:02:28 hemoglobi n (Hb), blood 2022 024 [facility] [employer] [facility], [address], [address] [place], [place], [address], 10/08/2023 06:02:27 ferritin, serum or plasma 2022 023 [employer] [facility], [address], [place], [address], 04/28/2023 13:04:30 hemoglobi n (Hb), blood 2022 023 [employer] [facility], [address], [place], [address], 04/28/2023 12:46:13 Referral None recorded. Procedures None recorded. Surgeries None recorded. Imaging None recorded. Medication Orders ferrous sulfate 325 mg (65 mg iron) tablet 2023 024 [id number], [address], [place], [place], [id number], 04/04/2024 12:14:28 Vitamin C 500 mg tablet 2023 024 [facility] #[id number], [address], [place], [place], [id number], 04/04/2024 12:14:20 ferrous sulfate 325 mg (65 mg iron) tablet 2023 024 [facility] #[id number], [address], [place], [place], [id number], 10/27/2023 12:11:56 Vitamin C 500 mg tablet 2023 024 [facility] #[id number], [address], [place], [place], [id number], 10/27/2023 12:11:56 ferrous sulfate 325 mg (65 mg iron) tablet 2022 023 [facility] Store #[id number], [address], [place], [place], [id number], 04/28/2023 14:30:44 Vitamin C 500 mg tablet 2022 023 [facility] #[id number], [address], [place], [place], [id number], 04/28/2023 14:30:43 ferrous sulfate 325 mg (65 mg iron) tablet 2022 023 [facility] #[id number], [address], [place], [place], [id number], 10/27/2022 13:06:56 Vitamin C 500 mg tablet 2022 023 [facility] #[id number], [address], [place], [place], [id number], 10/27/2022 13:07:00 Patient TargetsNo targets recorded. Patient InstructionsNo instructions recorded. Reason for Referral None Reported. Results Created Date Observation Date Name Description Value Unit Range Abnormal Flag Note LastModifiedBy Organization Detail LastModifiedTime 10/07/1910/08/2023 HEMOG LOBIN hemoglobin 15.7 g/dL 13.2-1 7.1 normal Not Available [facility] [address] [place], [address], 10/08/2023 06:02:27 10/07/19 24 10/08/2023 YARITZA TIN ferritin 415 NG/mL 24-380 high Not Available [facility] [address] [place] [address], [address], 10/08/2023 06:02:28 Result Notes None recorded. Problems Name Problem SNOMED Code Status Onset Date Resolution Date Notes Provider Name and Address Organization Details Recorded Time Iron deficiency 19243911 Active 2022 Not Available [facility] 3 18:14:11 Obstructive sleep apnea syndrome 82351305 Active 2023 Nhan Francis MD [address] [facility], [facility] [address], [place], [address] , [facility] [employer] [facility] 4 12:06:48 Edema of lower extremity 550337975 Active 2021 Not Available [facility] 3 18:14:11 Benign paroxysmal positional vertigo 403907535 Active Not Available [facility] 3 18:14:11 Gastroesophag eal reflux disease 136089686 Active 2018 Not Available [facility] 3 18:14:11 Pure hypercholeste rolemia 331442212 Active Not Available [facility] 3 18:14:11 Diverticular disease 464975313 Active Not Available [facility] 3 18:14:11 Obesity 482158682 Active Not Available [facility] 3 18:14:11 Raised antinuclear antibody 033544100 Active 2021 Not Available [facility] 3 18:14:11 Essential hypertension 70140363 Active 2016 Not Available [facility] 3 18:14:11 Liver enzymes level above reference range 756221567 Active 2021 Not Available [facility] 3 18:14:11 Notes:Medical History: Verti go Bilateral hearing loss COVID infection 05/2021, 05/2022 Obesity with mild OSAHS, AHI = 5, 10/09/21, on CPAP c/o IVRC Hypertension Hyperlipidemia ROBEL Diverticulosis Hemorrhoids Iron deficiency anemia PLMD Procedure History: Umbilical herniorrhaphies - Thoracic surgery 1988 Left inguinal herniorrhaphy 2002 Colonoscopy with polypectomy 2010 Cholecystectomy 2019 Occupational History: Industrial plant attendant Problem Notes None recorded. Procedures Surgical History Date Name Laterality Status Provider Name and Address Organization Details Recorded Time 06/11/20 16 laparoscopic cholecystectomy completed Not Available [facility] 09/09/2022 03:14:37 09/07/19 14 Rpr umbil gale block > 5 yr completed Not Available [facility] 09/09/2022 03:14:37 09/07/19 14 repair of umbilical hernia completed Not Available [facility] 09/09/2022 03:14:37 Thoracic aortic graft completed Not Available [facility] 09/09/2022 03:14:37 esophagectomy completed Not Available [facility] 09/09/2022 03:14:37 fusion of thoracic spine completed Not Available [facility] 09/09/2022 03:14:37 Imaging Results None recorded. Procedure Notes None recorded. Medical Equipment None Reported. Allergies No known drug allergies Medications Name Sig Start Date Stop Date Status Note LastModified by Organization Details LastModified Time furosemid e 40 mg tablet TAKE 1 TABLET BY MOUTH EVERY DAY NEEDED active Not Available Not Available No t Available clonidine HCl 0.1 mg tablet TAKE 1 TABLET BY MOUTH TWICE DAILY active Not Available Not Available No t Available doxycycli ne hyclate 100 mg capsule TAKE 1 CAPSULE BY MOUTH TWICE DAILY FOR 10 DAYS active Not Available Not Available No t Available Vitamin C 500 mg tablet Take 1 tablet twice a week by oral route. 2023 active Not Available Not Available Not Avai lable lisinopri l 20 mg-hydroc hlorothia zide 12.5 mg tablet TAKE 2 TABLETS BY MOUTH DAILY active Not Available Not Available No t Available azithromy manjinder 250 mg tablet Take 1 dose pk by oral route as directed . 03/21 completed Not Available Not Available Not Available benzonata te 200 mg capsule TAKE 1 CAPSULE BY MOUTH THREE TIMES DAILY NEEDED FOR COUGH active Not Available Not Available No t Available hydrocodo ne 5 mg-acetam inophen 325 mg tablet 06/11 completed Not Available Not Available Not Available prednison e 20 mg tablet active Not Available Not Available Not Available nifedipin e ER 30 mg tablet,ex tended release Take 1 tablet every day by oral route. 10/14 completed Not Available Not Available Not Available acetamino phen 300 mg-codein e 30 mg tablet TAKE ONE TABLET 3 TIMES DAILY NEEDED FOR PAIN 02/27 completed Not Available Not Available Not Available triamcino lone acetonide 0.1 % topical cream APPLY A THIN LAYER TO THE AFFECTED AREA(S) BY TOPICAL ROUTE DAILY active Not Available Not Available No t Available quinapril 40 mg tablet Take 1 tablet twice a day by oral route. 10/14 completed Not Available Not Available Not Available oxycodone -acetamin ophen 5 mg-325 mg tablet 06/17 completed Not Available Not Available Not Available alprazola m 0.5 mg tablet TK 1 T PO THE NIGHT B AND 1 T 1 HOUR B APPOINTM ENT 03/03 completed Not Available Not Available Not Available clonidine HCl 0.2 mg tablet TAKE 1 TABLET BY MOUTH TWICE DAILY active Not Available Not Available No t Available ciproflox acin 0.3 % eye drops 10/13 completed Not Available Not Available Not Available cephalexi n 500 mg capsule TAKE 1 CAPSULE THREE TIMES A DAY FOR 7 DAYS. 02/27 completed Not Available Not Available Not Available oseltamiv ir 75 mg capsule 08/05 completed Not Available Not Available Not Available ferrous sulfate 325 mg (65 mg iron) tablet Take 1 tablet twice a week by oral route. 2023 active Not Available Not Available Not Avai lable indometha manjinder 50 mg capsule TAKE 1 CAPSULE BY MOUTH THREE TIMES DAILY WITH FOOD OR MILK 04/28 completed Not Available Not Available Not Available omeprazol e 20 mg capsule,d elayed release TAKE 1 CAPSULE DAILY DIRECTED active Not Available Not Available No t Available diltiazem CD 120 mg capsule,e xtended release 24 hr TAKE 1 CAPSULE BY MOUTH DAILY active Not Available Not Available No t Available quinapril 20 mg tablet TAKE 1 TABLET DAILY DIRECTED 11/04 completed Changed to 40mg BID Not Available Not Available Not Available furosemid e 20 mg tablet TAKE 1 TABLET BY MOUTH EVERY DAY NEEDED active Not Available Not Available No t Available Aspir-81 mg tablet,de layed release Take 1 tablet every day by oral route. 12/10 completed Not Available Not Available Not Available methylpre dnisolone 4 mg tablets in a dose pack FOLLOW PACKAGE DIRECTIO NS FOR 6 DAYS active Not Available Not Available No t Available albuterol sulfate HFA 90 mcg/actua tion aerosol inhaler INHALE 2 PUFFS BY MOUTH EVERY 6 HOURS NEEDED FOR WHEEZING OR SHORTNES S OF BREATH active Not Available Not Available No t Available colchicin e 0.6 mg tablet TAKE 2 TABLETS BY MOUTH IMMEDIAT KYLE THEN 1 TABLET 1 HOUR LATER active Not Available Not Available No t Available cefdinir 300 mg capsule Take 1 capsule twice a day by oral route for 7 days. active Not Available Not Available No t Available amoxicill in 875 mg-potass ium clavulana te 125 mg tablet Take 1 tablet twice a day by oral route for 7 days. 03/21 completed Not Available Not Available Not Available rosuvasta tin 5 mg tablet TAKE 1 TABLET BY MOUTH DAILY active Not Available Not Available No t Available rosuvasta tin 10 mg tablet TAKE 1 TABLET DAILY DIRECTED active Not Available Not Available No t Available Boostrix Tdap 2.5 Lf unit-8 mcg-5 Lf/0.5 mL intramusc ular syringe ADM 0.5ML IM UTD 10/19 completed Not Available Not Available Not Available multivita min 06/24 completed Not Available Not Available Not Available Low Dose Aspirin 10/14 completed Not Available Not Available Not Available Virtussin AC 10 mg-100 mg/5 mL oral liquid 08/05 completed Not Available Not Available Not Available COVID-19 test specimen collectio n TEST DIRECTED TODAY 09/01 completed Not Available Not Available Not Available Vitals Date Recorded Body height Body mass index (BMI) Body weight Body temperature Heart rate Oxygen saturation Oxygen saturation in Arterial blood by Pulse oximetry Systolic blood pressure Diastolic blood pressure Provider Name and Address Organization Details Last Updated DateTime 3 168.91 cm 41.5 kg/m2 636065. 61 g 98.7 [degF] 79 /min 97 % 97 % 138 mm[Hg] 84 mm[Hg] Kayleigh Kent MA [facility] [employer] [facility] 3 12:42:21 Date Recorded Heart rate Respiratory rate Provider N юлия and Address Organization Details Last Updated DateTime 10/27/2022 79 /min 15 /min Nhan Francis MD [address] [place], [address], [facility] [employer] [facility] 10/27/2022 13:00:11 Date Recorded Body height Body mass index (BMI) Body weight Body temperature Oxygen saturation Oxygen saturation in Arterial blood by Pulse oximetry Systolic blood pressure Diastolic blood pressure Provider Name and Address Organization Details Last Updated DateTime 3 168.91 cm 42.9 kg/m2 929468. 94 g 97.2 [degF] 97 % 97 % 142 mm[Hg] 80 mm[Hg] SHANNAN Barakat [facility] [employer] [facility] 3 10:33:44 Date Recorded Heart rate Heart rate Respiratory rate Provider Name and Address Organization Details Last Updated DateTime 04/28/2023 95 /min 95 /min 14 /min Nhan Francis MD [address], [place], [address], [facility] [employer] [facility] 04/28/2023 10:40:45 Date Recorded Body height Body mass index (BMI) Body weight Body temperature Heart rate Oxygen saturation Oxygen saturation in Arterial blood by Pulse oximetry Systolic blood pressure Diastolic blood pressure Provider Name and Address Organization Details Last Updated DateTime 4 168.91 cm 43.7 kg/m2 775294. 9 g 98.4 [degF] 72 /min 96 % 96 % 124 mm[Hg] 72 mm[Hg] Chela Sy CMA [facility] [employer] 4 11:35:48 Date Recorded Heart rate Respiratory rate Provider N юлия and Address Organization Details Last Updated DateTime 10/27/2023 72 /min 15 /min Nhan Francis MD [address], [facility] [address], [place], [address], [facility] [employer] 10/27/2023 12:19:01 Date Recorded Body height Heart rate Heart rate Respiratory rate Body mass index (BMI) Body weight Body temperature Systolic blood pressure Diastolic blood pressure Provider Name and Address Organization Details Last Updated DateTime 4 168.91 cm 63 /min 63 /min 18 /min 41.7 kg/m2 626208. 2 g 98.6 [degF] 134 mm[Hg] 76 mm[Hg] Deanna Pretty MA [facility] [employer] 4 11:34:23 Date Recorded Oxygen saturation Oxygen saturation in Arterial blood by Pulse oximetry Provider Name and Address Organization Details Last Updated DateTime 04/04/2024 95 % 95 % Nhan Francis MD [address], [facility] [address], [place], [address], [facility] [employer] 04/04/2024 12:14:39 Date Recorded Body mass index (BMI) Heart rate Body height Oxygen saturation Oxygen saturation in Arterial blood by Pulse oximetry Heart rate Respiratory rate Body temperature Body weight Systolic blood pressure Diastolic blood pressure Provider Name and Address Organization Details Last Updated DateTime 3 41.9 kg/m2 88 /min 168.91 cm 99 % 99 % 88 /min 15 /min 98.8 [degF] 754808. 23 g 118 mm[Hg] 80 mm[Hg] Not Available [facility] 03:17:23 Social History Question Answer Notes LastModified by Organizat ion Details LastModified Time Tobacco Smoking Status Former Smoker Not Available [facility] 09/09/2022 03:02:27 Do You Have An Advance Directive? No [id number] Information not available 09/09/2022 What Is Your Level Of Alcohol Consumption? Occasional MIGRATION.06014 [id number] Information not available 09/09/2022 What Is Your Level Of Caffeine Consumption? Moderate MIGRATION.59239 10075 Information not available 09/09/2022 How Much Tobacco Do You Chew? None MIGRATION.07240 51226 Information not available 09/09/2022 In The 14 Days Before Symptom Onset, Have You Had Close Contact With A Laboratory-confi rmed COVID-19 While That Case Was Ill? No MIGRATION.02771 47571 Information not available 09/09/2022 In The 14 Days Before Symptom Onset, Have You Had Close Contact With A Person Who Is Under Investigation For COVID-19 While That Person Was Ill? No MIGRATION.04189 49368 Information not available 09/09/2022 What Type Of Diet Are You Following? REGULAR MIGRATION.08228 53947 Information not available 09/09/2022 Which Illicit Or Recreational Drugs Have You Used? None MIGRATION.05629 57734 Information not available 09/09/2022 Do You Or Have You Ever Used E-cigarettes Or Vape? Never Used Electronic Cigarettes MIGRATION.24116 97695 Information not available 09/09/2022 What Is The Highest Grade Or Level Of School You Have Completed Or The Highest Degree You Have Received? [id number] MIGRATION.14137 18570 Information not available 09/09/2022 Do You Have An Electrostatic Air Filter? 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 No MIGRATION.12886 74325 Information not available 09/09/2022 What Is The Fluoride Status Of Your Home? Unknown MIGRATION.70398 63448 Information not available 09/09/2022 When Did You Quit Smoking? 17+yearssincelvirgie duran MIGRATION.81885 13341 Information not available 09/09/2022 Do You Have A Humidifier? Yes MIGRATION.12090 24630 Information not available 09/09/2022 Do You Use Insect Repellent Routinely? No MIGRATION.39667 41577 Information not available 09/09/2022 Where Do You Live? [place]House MIGRATION.76259 38248 Information not available 09/09/2022 Do You Have A Medical Power Of Wet Process [place]? No MIGRATION.00099 74377 Information not available 09/09/2022 Do You Have Moisture Problems In Your Home? No MIGRATION.06102 71518 Information not available 09/09/2022 What Was The Date Of Your Most Recent Tobacco Screening? 04/28/2023 [email or web address] Information not available 04/28/2023 Have You Ever Been Counseled For Unhealthy Alcohol Use? No MIGRATION.01378 30730 Information not available 09/09/2022 Do You Have Any Pets? No MIGRATION.27692 80695 Information not available 09/09/2022 What Is Your Relationship Status? MIGRATION.53643 29738 Information not available 09/09/2022 Do You Use Your Seat Belt Or Car Seat Routinely? Yes MIGRATION.42548 85438 Information not available 09/09/2022 Do You Have Smoke And Carbon Monoxide Detectors In Your Home? Yes MIGRATION.54014 45711 Information not available 09/09/2022 Are You Passively Exposed To Smoke? No MIGRATION.14363 30662 Information not available 09/09/2022 Do You Or Have You Ever Used Smokeless Tobacco? Never Used Smokeless Tobacco MIGRATION.48870 62395 Information not available 09/09/2022 Are There Any Smokers In Your House? No MIGRATION.86559 53229 Information not available 09/09/2022 What Types Of Sporting Activities Do You Participate In? None MIGRATION.92764 86385 Information not available 09/09/2022 Do You Feel Stressed (tense, Restless, Nervous, Or Anxious, Or Unable To Sleep At Night)? [id number] MIGRATION.30616 51220 Information not available 09/09/2022 Do You Use Any Illicit Or Recreational Drugs? No MIGRATION.05760 98261 Information not available 09/09/2022 Do You Use Sunscreen Routinely? No MIGRATION.02651 63268 Information not available 09/09/2022 Has Tobacco Cessation Counseling Been Provided? No MIGRATION.65320 68421 Information not available 09/09/2022 Have You Recently Traveled Abroad? No MIGRATION.52188 94922 Information not available 09/09/2022 Do You Have Any Dietary Restrictions? No MIGRATION.73756 66938 Information not available 09/09/2022 Do You Or Have You Ever Used Any Other Forms Of Tobacco Or Nicotine? No MIGRATION.89545 32878 Information not available 09/09/2022 Sex: Male Functional Status Question Answer Note LastModified by Organizat ion Details LastModified Time What is your exercise level? Occasional [id number].[id number] Information not available 09/09/2022 Mental Status None recorded. Family History Relationship Description Onset Age of this Age Resolved Age Notes LastModified by Organization Details LastModified Time Brother Myocardial infarction [id number] Not available 09/09/2022 03:14:40 Notes:Pt is adopted Medical History Condition Response NERVE DISEASE N BLINDNESS N RHEUMATIC FEVER N KIDNEY STONES N BLADDER PROBLEMS N MRSA N OTHER # 1 Y POLIO N LUNG DISEASE/DISORDER N RADIATION / CHEMOTHERAPY N COPD N Other # 2 N BLOOD DISEASES N SURGERY N EAR OR HEARING PROBLEMS N MUMPS N BOWEL PROBLEMS N DEPRESSION (INCLUDING POST ) N STROKE/TIA N ULCERS N BENIGN PROSTATIC HYPERPLASIA N MEASLES N MYOCARDIAL INFARCTION N OBESITY Y GERD/NAUSEA Y ANEURYSM N URINARY/BLADDER/KIDNEY PROBLEMS N CORONARY ARTERY DISEASE (CAD) N ADDICTION CONCERNS N ENDOMETRIOSIS N Impotence N USE OF BLOOD THINNERS N SKIN PROBLEMS N GASTROINTESTINAL DISORDER N PERIPHERAL VASCULAR DISEASE N MUSCLE,JOINT OR BONE PROBLEMS N GASTROINTESTINAL BLEEDING N BLOOD CLOTS N ASTHMA N CATARACTS N ERECTILE DYSFUNCTION N VARICOSITIES N GI PROBLEMS N Low Testosterone N INFERTILITY N AIDS/HIV N CHEMOTHERAPY / RADIATION N LIVER DISEASE N MALE HYPOGONADISM N HYPERTENSION Y Deficiency N ANXIETY DISORDER N BLOOD TRANSFUSION N ANEMIA/BLOOD DISORDER N CHRONIC EAR INFECTIONS N BRONCHITIS N TUBERCULOSIS N GLAUCOMA N FOOT PROBLEM N DIVERTICULITIS N SLEEP APNEA N CHICKENPOX N INFECTIOUS DISEASE N HEART ARRHYTHMIA N PROSTATE N INSOMNIA N HIGH CHOLESTEROL / HYPERLIPIDEMIA Y HYPERTHYROIDISM N EYE PROBLEMS N NEUROLOGICAL PROBLEMS N EDEMA N CHRONIC PAIN SYNDROME N HYPOTHYROIDISM N CAROTID BLOCKAGE N CONSTIPATION N BACK / NECK PROBLEMS N HAVE YOU BEEN HOSPITALIZED OR SEEN IN [facility] IN THE PAST YEAR ? N ATHEROSCLEROSIS N BREAST PROBLEMS N DIALYSIS N ECZEMA N OSTEOPOROSIS N ARTHRITIS N APPENDICITIS N DIABETES, TYPE N BAD TEETH N ENT N HEARTBURN / REFLUX Y AUTISM SPECTRUM DISORDER (ASD) N HEPATITIS / LIVER DISEASE N GOUT N SLEEP DISORDER N ALZHEIMER'S DISEASE N Brain Problems N HERPES N DEMENTIA N HEADACHES/MIGRAINES N SEIZURES/EPILEPSY N VASCULAR DISEASE N PACEMAKER N Blood Disorder N DIZZINESS N HEART DISEASE/HEART PROBLEMS N KIDNEY DISEASE N MULTIPLE SCLEROSIS N CARDIAC ARRHYTHMIA N CANCER: SPECIFY N ATRIAL FIBRILLATION N Gall Stones Y PULMONARY EMBOLISM N AUTOIMMUNE DISEASE N Immunizations Vaccine Type Date Status Note Provider Nam e and Address Organization Details Recorded Time COVID-19, mRNA, LNP-S, PF, 30 mcg/0.3 mL dose 1 completed Not Available [facility] 04/30/2023 18:14:12 COVID-19, mRNA, LNP-S, PF, 30 mcg/0.3 mL dose 1 completed Not Available [facility] 04/30/2023 18:14:12 Influenza, split virus, quadrivalent, preservative 8 completed Not Available [facility] 04/30/2023 18:14:12 Tdap 6 completed Not Available [facility] 04/30/2023 18:14:12 Past Encounters Encounter ID Performer Location Encounter Start Date Encounter Closed Date Diagnosis/Indication Diagnosis SNOMED-CT Code Diagnosis ICD10 Code Diagnosis Note [id number] [facility] [address] [place] [address]., [address] [address] 11/04/2020 00:00:00 12/01/2020 11:23:46 [id number] [facility] [address] [address] 03/03/2021 00:00:00 03/03/2021 22:10:16 [id number] [facility] [place] [address] [place], [place] [address]., [address] [address] 03/19/2021 00:00:00 04/19/2021 12:54:12 [id number] [facility] [address] [place] [address] 03/21/2021 00:00:00 03/21/2021 11:06:32 [id number] [facility] [address] [place] [address] 04/15/2021 00:00:00 04/15/2021 09:09:32 [id number] [facility] [address] [place], [place] [address]., [address] [address] 09/01/2021 00:00:00 09/07/2021 15:45:17 [id number] [facility] [address] [place], [place] [address]., [address] [address] 11/12/2021 00:00:00 11/30/2021 19:46:35 [id number] [facility] [address] [place], [place] [address]., [address] [address] 11/19/2021 00:00:00 11/19/2021 21:49:42 [id number] [facility] [address] [place], [place] [address]., [address] [address] 12/03/2021 00:00:00 12/07/2021 12:07:18 [id number] [facility] [address] [place], [place] [address]., [address] [address] 12/24/2021 00:00:00 01/18/2022 21:32:11 [id number] [facility] [address] [address] 03/27/2022 00:00:00 03/28/2022 12:51:54 [id number] [facility] [address] [place] [address] 06/24/2022 00:00:00 06/24/2022 11:18:52 [id number] [facility] [place] [address] [address] 07/22/2022 00:00:00 07/22/2022 10:52:18 [id number] Nhan Francis MD [facility] [place] [address] [address] 10/27/2022 12:15:50 10/28/2022 08:23:45 Iron deficiency 49623260 E61.1 D64.9 [id number] Nhan Francis MD [facility] [place] [address] 04/28/2023 10:23:49 04/28/2023 10:58:43 Iron deficiency 88014854 E61.1 D64.9 [id number] [facility] [place] [address] 10/27/2023 10:50:40 10/28/2023 07:56:19 Iron deficiency 76817074 E61.1 D64.9 Obstructiv e sleep apnea syndrome 94856845 G47.33 [id number] Nhan Francis MD [facility]_[address] [address] 04/04/2024 11:10:26 04/05/2024 15:13:34 Obstructive sleep apnea syndrome 85039686 G47.33 Iron deficiency 96785623 E61.1 D64.9 Health Concerns Section Related Observation LastModified by Organization Detai ls LastModified Time None Recorded Concern Status LastModified by Organization Details LastModified Time None Recorded Advance Directives Directive N: Payers Encounter Date Sequence Insurance Name Policy Number Policy Black Covered Member ID Black Member ID Guarantor Name 10/27/2022 1 [place] 000 James Hernandes [id number] James Hernandes 04/28/2023 1 [place] 000 James Hernandes [id number] James Hernandes 10/27/2023 1 [place] 000 James Hernandes [id number] James Hernandes 04/04/2024 1 [place] 000 James Hernandes [id number] James Hernandes Notes Date Note Type Note Provider Name and Address Organization Details Recorded Time 10/27/2022 text/html Primary care/Ref erring provider: James Martel MD During the [facility] home sleep study on 10/09/21, AHI = 5.During the [facility] titration sleep study on 12/09/21, PLMI = 26 and he is on iron supplements.At home since 07/22/22, the patient uses a [employer] Air[employer]ense 11 autoset unit with heated humidification. The patient does not need the ramp to start low and go up slowly on the pressure anymore. There is no xerostomia in a.m. There is no hose/mask condensation with water.The patient wears a [employer] large Vitera full face mask without chin strap. There is no claustrophobia, no nostril/nose bridge irritation, no facial rash, no facial numbness, no nosebleeding.The patient feels more refreshed upon waking and daytime alertness is improved. Energy levels are sustained until evening hours, around 7 pm.At home, the patient sleeps from 8:30 pm to 5 am and wakes up without an alarm.Snoring: heavy, since .Snorting: yesChoking: noCoughing: noGasping: noGagging: noSighing: noWitnessed apnea: yesTwitching or jerking of leg(s), arm(s), body, head: yesTeeth grinding: noTeeth clenching: noSleeptalking: noSleepwalking: noSleep crying: noBedwetting: noTongue/lip/gum/cheek biting: noSleeping with open mouth: yesSleep paralysis: noHypnagogic hallucinations: noHypnopompic hallucinations: noVivid dreams: noDifficulty with sleep onset: noDifficulty with sleep maintenance: yesSleep interruptions: nocturia x 2Patient wakes up with: fatigueDaytime cataplexy: noMorning hypersomnolence: noAfternoon hypersomnolence: yesCaffeine sources in diet: coffee 2 cups per dayAssociated medical and psychiatric conditions:Congestive heart failure: noCoronary artery disease: noMyocardial infarction: noHypertension: yesStroke: noBronchial asthma: noChronic obstructive pulmonary disease: noDepression: noBipolar disorder: noAnxiety: noPanic disorder: noPosttraumatic stress disorder: noAttention deficit and hyperactivity disorder: noObsessive Compulsive disorder: noSchizophrenia: noSchizoaffective disorder: noPersonality disorder: noChronic analgesic use: noChronic sedative/hypnotic use: noEPWORTH SLEEPINESS SCALE (ESS)CHANCE OF DOZING SCORE0 = would never doze1 = slight chance of dozing2 = moderate chance of dozing3 = high chance of dozingSITUATION AND CHANCE OF DOZINGSitting and reading - 0Watching television - 0Sitting inactive in a public place (e.g. a theater or meeting) - 0As a passenger in a car for an hour without a break - 0Lying down to rest in the afternoon when circumstances permit - 1Sitting and talking to someone - 0Sitting quietly after lunch without alcohol - 0In a car, while stopped for a few minutes in the traffic - 0TOTAL SCORE 1Subjectively, patient has a slight chance of dozing. Nhan Francis MD [address] [place] [address], [phone], [facility] [employer] 10/27/2022 13:15:32 04/28/2023 text/html Primary care/Ref erring provider: James Martel MD During the [facility] home sleep study on 10/09/21, AHI = 5.During the [facility] titration sleep study on 12/09/21, PLMI = 26 and he is on iron supplements.At home since 10/27/22, the patient uses a [employer] AirSense 11 autoset unit with heated humidification. The patient does not need the ramp to start low and go up slowly on the pressure anymore. There is no xerostomia in a.m. There is no hose/mask condensation with water.The patient wears a [employer] large Vitera full face mask without chin strap. There is no claustrophobia, no nostril/nose bridge irritation, no facial rash, no facial numbness, no nosebleeding.The patient feels more refreshed upon waking and daytime alertness is improved. Energy levels are sustained until evening hours, around 7 pm.At home, the patient sleeps from 8:30 pm to 5 am and wakes up without an alarm.Snoring: heavy, since .Snorting: yesChoking: noCoughing: noGasping: noGagging: noSighing: noWitnessed apnea: yesTwitching or jerking of leg(s), arm(s), body, head: yesTeeth grinding: noTeeth clenching: noSleeptalking: noSleepwalking: noSleep crying: noBedwetting: noTongue/lip/gum/cheek biting: noSleeping with open mouth: yesSleep paralysis: noHypnagogic hallucinations: noHypnopompic hallucinations: noVivid dreams: noDifficulty with sleep onset: noDifficulty with sleep maintenance: yesSleep interruptions: nocturia x 2Patient wakes up with: fatigueDaytime cataplexy: noMorning hypersomnolence: noAfternoon hypersomnolence: yesCaffeine sources in diet: coffee 2 cups per dayAssociated medical and psychiatric conditions:Congestive heart failure: noCoronary artery disease: noMyocardial infarction: noHypertension: yesStroke: noBronchial asthma: noChronic obstructive pulmonary disease: noDepression: noBipolar disorder: noAnxiety: noPanic disorder: noPosttraumatic stress disorder: noAttention deficit and hyperactivity disorder: noObsessive Compulsive disorder: noSchizophrenia: noSchizoaffective disorder: noPersonality disorder: noChronic analgesic use: noChronic sedative/hypnotic use: noEPWORTH SLEEPINESS SCALE (ESS)CHANCE OF DOZING SCORE0 = would never doze1 = slight chance of dozing2 = moderate chance of dozing3 = high chance of dozingSITUATION AND CHANCE OF DOZINGSitting and reading - 0Watching television - 1Sitting inactive in a public place (e.g. a theater or meeting) - 0As a passenger in a car for an hour without a break - 1Lying down to rest in the afternoon when circumstances permit - 1Sitting and talking to someone - 0Sitting quietly after lunch without alcohol - 0In a car, while stopped for a few minutes in the traffic - 0TOTAL SCORE 3Subjectively, patient has a slight chance of dozing. Nhan Francis MD [address] [place] [address], [place] [address], [place], [address], [facility] 04/28/2023 14:30:42 10/27/2023 text/html Primary care/Ref erring provider: James Martel MD During the [facility] home sleep study on 10/09/21, AHI = 5.During the [facility] titration sleep study on 12/09/21, PLMI = 26 and he is on iron supplements.At home since 04/28/23, the patient uses a [employer] AirSense 11 autoset unit with heated humidification. The patient does not need the ramp to start low and go up slowly on the pressure anymore. There is no xerostomia in a.m. There is no hose/mask condensation with water.The patient wears a [employer] large Vitera full face mask without chin strap. There is no claustrophobia, no nostril/nose bridge irritation, no facial rash, no facial numbness, no nosebleeding.The patient feels more refreshed upon waking and daytime alertness is improved. Energy levels are sustained until evening hours, around 7 pm.At home, the patient sleeps from 8:30 pm to 5 am and wakes up without an alarm.Snoring: heavy, since .Snorting: yesChoking: noCoughing: noGasping: noGagging: noSighing: noWitnessed apnea: yesTwitching or jerking of leg(s), arm(s), body, head: yesTeeth grinding: noTeeth clenching: noSleeptalking: noSleepwalking: noSleep crying: noBedwetting: noTongue/lip/gum/cheek biting: noSleeping with open mouth: yesSleep paralysis: noHypnagogic hallucinations: noHypnopompic hallucinations: noVivid dreams: noDifficulty with sleep onset: noDifficulty with sleep maintenance: yesSleep interruptions: nocturia x 2Patient wakes up with: fatigueDaytime cataplexy: noMorning hypersomnolence: noAfternoon hypersomnolence: yesCaffeine sources in diet: coffee 2 cups per dayAssociated medical and psychiatric conditions:Congestive heart failure: noCoronary artery disease: noMyocardial infarction: noHypertension: yesStroke: noBronchial asthma: noChronic obstructive pulmonary disease: noDepression: noBipolar disorder: noAnxiety: noPanic disorder: noPosttraumatic stress disorder: noAttention deficit and hyperactivity disorder: noObsessive Compulsive disorder: noSchizophrenia: noSchizoaffective disorder: noPersonality disorder: noChronic analgesic use: noChronic sedative/hypnotic use: noEPWORTH SLEEPINESS SCALE (ESS)CHANCE OF DOZING SCORE0 = would never doze1 = slight chance of dozing2 = moderate chance of dozing3 = high chance of dozingSITUATION AND CHANCE OF DOZINGSitting and reading - 0Watching television - 1Sitting inactive in a public place (e.g. a theater or meeting) - 0As a passenger in a car for an hour without a break - 1Lying down to rest in the afternoon when circumstances permit - 1Sitting and talking to someone - 0Sitting quietly after lunch without alcohol - 0In a car, while stopped for a few minutes in the traffic - 0TOTAL SCORE 3Subjectively, patient has a slight chance of dozing. Nhan Francis MD [address] [place] [address], [id number], [facility] 10/27/2023 12:19:28 04/04/2024 text/html Primary care/Ref erring provider: James Martel MD During the [facility] home sleep study on 10/09/21, AHI = 5.During the [facility] titration sleep study on 12/09/21, PLMI = 26 and he is on iron supplements.At home since 10/27/23, the patient uses a [employer] AirSense 11 autoset unit with heated humidification. The patient does not need the ramp to start low and go up slowly on the pressure anymore. There is no xerostomia in a.m. There is no hose/mask condensation with water.The patient wears a [employer] large Vitera full face mask without chin strap. There is no claustrophobia, no nostril/nose bridge irritation, no facial rash, no facial numbness, no nosebleeding.The patient feels more refreshed upon waking and daytime alertness is improved. Energy levels are sustained until evening hours, around 7 pm.At home, the patient sleeps from 8:30 pm to 5 am and wakes up without an alarm.Snoring: heavy, since .Snorting: yesChoking: noCoughing: noGasping: noGagging: noSighing: noWitnessed apnea: yesTwitching or jerking of leg(s), arm(s), body, head: yesTeeth grinding: noTeeth clenching: noSleeptalking: noSleepwalking: noSleep crying: noBedwetting: noTongue/lip/gum/cheek biting: noSleeping with open mouth: yesSleep paralysis: noHypnagogic hallucinations: noHypnopompic hallucinations: noVivid dreams: noDifficulty with sleep onset: noDifficulty with sleep maintenance: yesSleep interruptions: nocturia x 2Patient wakes up with: fatigueDaytime cataplexy: noMorning hypersomnolence: noAfternoon hypersomnolence: yesCaffeine sources in diet: coffee 2 cups per dayAssociated medical and psychiatric conditions:Congestive heart failure: noCoronary artery disease: noMyocardial infarction: noHypertension: yesStroke: noBronchial asthma: noChronic obstructive pulmonary disease: noDepression: noBipolar disorder: noAnxiety: noPanic disorder: noPosttraumatic stress disorder: noAttention deficit and hyperactivity disorder: noObsessive Compulsive disorder: noSchizophrenia: noSchizoaffective disorder: noPersonality disorder: noChronic analgesic use: noChronic sedative/hypnotic use: noEPWORTH SLEEPINESS SCALE (ESS)CHANCE OF DOZING SCORE0 = would never doze1 = slight chance of dozing2 = moderate chance of dozing3 = high chance of dozingSITUATION AND CHANCE OF DOZINGSitting and reading - 1Watching television - 1Sitting inactive in a public place (e.g. a theater or meeting) - 1As a passenger in a car for an hour without a break - 1Lying down to rest in the afternoon when circumstances permit - 1Sitting and talking to someone - 0Sitting quietly after lunch without alcohol - 0In a car, while stopped for a few minutes in the traffic - 0TOTAL SCORE 3Subjectively, patient has a slight chance of dozing. Nhan Francis MD [address] [facility], [facility] [address], [place], [address], [facility] 04/04/2024 17:37:56
--- OUTSIDE RECORDS SUMMARY | 2024-09-26 11:05 | XMS_ITS | Clinical Summary ---
Author Organization [facility] Address [address] [place] [phone] Care Team Providers Care Mop Maker Name Role Phone Natan Martel MD Primary Care Provider [phone] Natan Cain MD Unavailable [phone] Jj Palma MD Unavailable Allergies No known active allergies Medications cloNIDine [...] day as needed for cough 30 capsule 025 Active azithromycin (ZITHROMAX) 250 mg tabletIndications:L ower respiratory infection (e.g., bronchitis, pneumonia, pneumonitis, pulmonitis) Take 2 tablets the first day, then 1 tablet daily for 4 days. 6 tablet 025 Active amoxicillin-clavula poppy (AUGMENTIN) 875-125 mg per [...] wheezing or shortness of breath 1 each Active methylPREDNISolone (Medrol, Savage,) 4 mg DosepackIndications [...] hypertension 11/12/2021 GEORGE (obstructive sleep apnea) 11/12/2021 Encounters Date Type Department Care Team Description 09/23/2024 9:15 AM CDT Office Visit [facility] [address] [address] Piper Lawrence, BROWN Lower respiratory infection (e.g., bronchitis, pneumonia, pneumonitis, pulmonitis) (Primary Dx) from Last 3 Months Surgical History Surgery Date Site/Laterality Comments THORACIC DISC SURGERY ESOPHAGUS SURGERY AORTA SURGERY Medical History Medical History Date Comments Hypertension Sleep apnea Social History Tobacco Use Types Packs/Day Years [...] week 11/13/2021 How often [facility] you [facility]? 1 to 4 times per year [...] money to buy more. Never true 11/14/19 22 Within the past 12 months, t he [...] place to sleep or slept in a fpc (including now)? No 11/13/2021 Sex and Gender Information Value Date Recorded Sex Assigned at Not on file Legal Sex Male 6:28 PM [employer] Gender Identity Not on file Sexual Orientation Not on file Obstetrics History Last Filed Vital Signs Vital Sign Reading [...] 03/13/2024 8:20 AM CDT Plan of Treatment Health Maintenance Due Date Last Done Comments Colon Cancer Screening-Colonoscopy 1961 Prostate Cancer Screening-PSA 1961 Regular Well Visit/Exam 18-64 1979 Pneumococcal vaccine <65 (1 of 2 - PCV) 01/09/1980 Zoster Vaccine (1 of 2) 2011 Depression Screening 11/12/2022 11/12/2021 Covid-19 Vaccine (3 - season) 2024, 09/07/2020 Influenza Vaccine (#1) 2024 04/20/2018 DTaP/Tdap/Td Vaccine (2 - Td or Tdap) 10/07/2025 Hepatitis B Screening Completed 11/13/2021 Hepatitis C Screening Completed 11/13/2021 Procedures Procedure Name Priority Date/Time Associated Diagnosis Comments POC INFLUENZA A/B, COVID-19 ANTIGEN Routine 09/23/2024 8:34 AM CDT Lower respiratory infection (e.g., bronchitis, pneumonia, pneumonitis, pulmonitis) HEPATITIS C ANTIBODY Routine 11/13/2021 4:55 AM CDT from Last 3 Months or Most Recently Relevant to Health Maintenance Results * POC Influenza A/B, COVID-19 antigen (09/23/2024 8:34 AM CDT) Influenza A Ag, POC Negative Negative [facility] Influenza B Ag, POC Negative Negative [facility] COVID-19 Ag POC Presumptive Negative Presumptive Negative, Invalid [facility] Nasal 09/23/2024 8:34 AM CDT Piper Lawrence NP POINT OF CARE TEST ORDERABLES Final Result Performing Organization Address [facility] [[email or web address]] Co de Phone Number [facility] [address] [place] [address] * Hepatitis C antibody (11/13/2021 4:55 AM [...] MICROBIOLOGY - GEN ERAL ORDERABLES Final Result [facility] [address] [address] Department [place] [address] from Last 3 Months or Most Recently Relevant to Health Maintenance Insurance BLUE ACCESS OOS BLUE ACCESS OOS Advance Directives For more information, please contact: [phone] * Full Code (Latest Code Status on File) Date Activated Date Inactivated Comments 11/12/2021 11:14 PM 11/13/2021 9:31 PM Care Teams Mop Maker Relationship Specialty Start Date End Date Natan Martel MD PCP - General 11/12/21 Natan Cain MD [address] [place] [address] [address] [place] [phone] (Work) Consulting Physician Neurology 11/13/21 Jj Palma MD [address] [place] [address] [place] [id number] Consulting Physician Gastroenterology 11/13/21
--- OUTSIDE RECORDS SUMMARY | 2024-09-26 11:05 | XMS_ITS | CONTINUITY OF CARE DOCUMENT ---
Author Name diana ortiz Address Unknown Organization [facility] Address [address] [facility] [address] [place] [address] Phone [phone] Care Team Providers Care Fisheries Officer Name Role Phone Charly Jernigan MD Unavailable [phone] Charly Jernigan MD Unavailable NATAN VOGT MD Unavailable [phone] INSURANCE PROVIDERS Payer name Policy type / Coverage type [employer] red libertarian ID [facility] [id number]
== END 2024-09-26 09:58 | disposition home or self-care (01) ==
PROVIDERS: PCP Internal Medicine; Visit Provider Internal Medicine
DX: J94.8 Other specified pleural conditions (principal); R05.9 Cough, unspecified
CPT/HCPCS: 71046

== ENCOUNTER 2025-03-19 13:41 | Outpatient (CLI) | payer BC, SELFPAY ==
--- NOTE | ~2025-03-19 | XR_ITS ---
EXAMINATION: XR ankle LT 2V, 03/19/2025 13:50 CDT HISTORY: M25.572 - Pain in left ankle and joints of left foot COMPARISON: No comparisons available. Findings: No acute fracture or malalignment. Large calcaneal spur. Soft tissue swelling. Impression: No acute fracture or malalignment. Reviewed, dictated and finalized at location A. Impression: No acute fracture or malalignment.
== END 2025-03-19 13:42 | disposition home or self-care (01) ==
LOC: MICIMG 13:42
PROVIDERS: PCP Internal Medicine; Visit Provider Internal Medicine
DX: M25.572 Pain in left ankle and joints of left foot (principal)
CPT/HCPCS: 73600